=== PATIENT | female | born 1945 | race Hispanic/Latino ===

== ENCOUNTER 2019-01-24 06:50 | Observation (INO) | payer OTHER ==
[2019-01-23 15:23] VITALS: BP 134/63
[2019-01-23 15:30] LABS: BASOPHILS % (AUTO) 0.5 % (0.0-5.0); EOSINOPHILS % (AUTO) 3.5 % (0.0-8.0); HEMATOCRIT 41.8 % (36-48); LYMPHOCYTES % (AUTO) 20.7 % (21.0-51.0); MEAN CORPUSCULAR HEMOGLOBIN 29.7 pg (27.0-33.0); MEAN CORPUSCULAR HGB CONC 33.2 g/dL (32.0-36.0); MEAN CORPUSCULAR VOLUME 89.5 fL (79-99); MONOCYTES % (AUTO) 10.5 % (3.0-13.0); NEUTROPHILS % (AUTO) 64.8 % (40.0-77.0); PLATELET COUNT (AUTO) 192 K/uL (130-400); RED BLOOD CELL COUNT(AUTO) 4.67 MIL/uL (4.00-5.50); RED CELL DISTRIBUTION WIDTH 13.7 % (11.0-15.5)
[2019-01-23 15:33] LABS: APPEARANCE,URINE SL CLOUDY (CLEAR); BILIRUBIN,URINE NEGATIVE (NEGATIVE); COLOR,URINE YELLOW (YELLOW); GLUCOSE, URINE (UA) NEGATIVE (NEGATIVE); KETONES,URINE NEGATIVE (NEGATIVE); LEUKOCYTE ESTERASE ,URINE TRACE (NEGATIVE); NITRATE,URINE NEGATIVE (NEGATIVE); OCCULT BLOOD,URINE NEGATIVE (NEGATIVE); PH,URINE 5.5 (5.0-8.0); PROTEIN,URINE NEGATIVE (NEGATIVE); UROBILINOGEN,URINE 0.2 mg/dL (0.2-1.0)
[2019-01-23 15:39] LABS: CREATININE 0.7 mg/dL (0.5-1.5)
[2019-01-23 15:39] LABS: BACTERIA,URINE Few /HPF (None Seen); RBC,URINE None Seen /HPF (0-1)
[2019-01-23 15:41] LABS: INR 0.87 (0.85-1.15); PARTIAL THROMBOPLASTIN TIME 29.6 SEC (26.3-35.5); PROTHROMBIN TIME 9.2 SEC (9.6-11.6)
--- NOTE | 2019-01-23 16:29 | NUR ---
UA INFORMED DR. HOFF OF ABNORMAL UA. ORDERS RECEIVED TO GIVE GENTAMICIN 240MG ON DAY OF PROCEDURE.
[2019-01-24] VITALS (23 sets, daily range): BP systolic 99–139; BP diastolic 35–67
[~2019-01-24] VITALS: Ht 160 cm; Wt 76.7 kg
[~2019-01-24 06:50] MED LIST: AMLO1TAB PO; GENTAMICIN SULFATE 240 MG in SODIUM CHLORIDE 0.9% 100 ML IV PRN
--- NOTE | 2019-01-24 08:21 | NUR ---
POTENTIAL FOR INFECTION: SHAVED LEFT KNEE / LEG FOLLOWED BY WIPING WITH KELSI: 2% CHLORHEXIDINE GLUCONATE CLOTH PATIENTS PRE-OP SKIN PREP. DONE PER GLORY VILLEDA MA.
[2019-01-24] MEDS ORDERED: ACETAMINOPHEN EXTRA STRENGTH 500 MG TABLET ONE (08:35)
[2019-01-24] MEDS ORDERED: KETOROLAC TROMETHAMINE 15MG/ML ONE (08:35)
[2019-01-24] MEDS ORDERED: CELECOXIB 200 MG CAP ONE (08:36)
[2019-01-24] MEDS ORDERED: LACTATED RINGERS 1000ML 1,000 ML IV ONE (08:36)
[2019-01-24] MEDS ORDERED: OXYCODONE HCL 10 MG TAB.SR.12H PO ONE (08:37)
[2019-01-24] MEDS: CEFAZOLIN SODIUM 1 GM VIAL IVP ONE ×2 (08:57→10:40)
[2019-01-24] MEDS ORDERED: CEFAZOLIN SODIUM 1 GM VIAL ONE ×2 (09:17→11:44)
[2019-01-24] MEDS ORDERED: ONDANSETRON HCL 4 MG/2 ML VIAL ONE (09:50)
[2019-01-24] MEDS ORDERED: GLYCOPYRROLATE 1 MG/5 ML SYRINGE ONE ×2 (09:50→10:20)
[2019-01-24] MEDS ORDERED: SUCCINYLCHOLINE 200MG/10ML SYR ONE (09:50)
[2019-01-24] MEDS ORDERED: PROPOFOL 10 MG/ML 20ML VIAL IV ONE (09:50)
[2019-01-24] MEDS ORDERED: LIDOCAINE PF 2% 5ML ABBOJECT ONE (09:50)
[2019-01-24] MEDS ORDERED: FENTANYL CITRATE PF 50 MCG/1 ML 2ML VIAL ONE ×2 (09:50→10:51)
[2019-01-24] MEDS ORDERED: DEXAMETHASONE SOD PHOSPHATE 10MG/ML 1ML VIAL ONE (09:50)
[2019-01-24] MEDS ORDERED: MIDAZOLAM HCL 1 MG/ML 2ML VIAL ONE (09:51)
[2019-01-24] MEDS ORDERED: ROCURONIUM 10MG/1ML SYR 10 MG/ML ML ONE (09:51)
[2019-01-24] MEDS ORDERED: NEOSTIGMINE 5MG/5ML SYR IV ONE (09:51)
[2019-01-24] MEDS: TRANEXAMIC ACID 1000MG/10ML IV ONE ×2 (10:20→12:30)
[2019-01-24] MEDS ORDERED: EPHEDRINE SULFATE 50 MG/ML AMPULE ONE (10:23)
[2019-01-24] MEDS ORDERED: TRAMADOL HCL 50 MG TABLET PO PRN (12:00)
[2019-01-24] MEDS ORDERED: DiphenhydrAMINE HCL 50 MG/ML VIAL IVP PRN (12:00)
[2019-01-24] MEDS ORDERED: POTASSIUM CHLORIDE 10% ELIXIR 20 MEQ/15 ML UDCUP PO PRN (12:00)
[2019-01-24] MEDS: ACETAMINOPHEN EXTRA STRENGTH 500 MG TABLET PO SCH ×2 (12:00→19:52)
[2019-01-24] MEDS ORDERED: POTASSIUM CHLORIDE 20 MEQ ERTAB PO PRN (12:00)
[2019-01-24] MEDS ORDERED: FERROUS FUMARATE 324 MG TABLET PO PRN (12:00)
[2019-01-24] MEDS ORDERED: POTASSIUM CHLORIDE 20MEQ/100ML 100 ML IV PRN (12:00)
[2019-01-24] MEDS ORDERED: LIDOCAINE HCL-MPF 1% 2ML VIAL IVP PRN (12:00)
[2019-01-24] MEDS ORDERED: CALCIUM CARBONATE 500 MG TABLET PO PRN (12:00)
[2019-01-24] MEDS ORDERED: OXYCODONE HCL 5 MG TAB PO PRN (12:00)
[2019-01-24] MEDS ORDERED: TEMAZEPAM 15 MG CAPSULE PO PRN (12:00)
[2019-01-24] MEDS ORDERED: KETOROLAC TROMETHAMINE 15MG/ML IV PRN (12:00)
[2019-01-24] MEDS ORDERED: ONDANSETRON HCL 4 MG/2 ML VIAL IVP PRN (12:00)
[2019-01-24] MEDS ORDERED: ATROPINE SULFATE 0.1 MG/ML 10 ML SYG IVP ONE (12:07)
[2019-01-24] MEDS: SODIUM CHLORIDE 0.9% 1000ML 1,000 ML IV SCH ×2 (13:10→21:48)
--- NOTE | 2019-01-24 13:35 | NUR ---
DCP CM met with pt discussed dc plans. Pt is independent prior to surgery, lives at home with spouse. Has a shower chair. Denies any other equipments/services. Pt feels safe to go back home, spouse able to assist with transportation and needs as necessary. Pt agreeable to short term placement for rehab as spouse will not be able to fully assist pt at home, TERE signed for [facility]. Faxed order, clinicals, and pasrr to [facility], confirmation received. Faxed order and clinicals to [facility], confirmation received. DC plan to SNF. CM to cont to follow up. Addendum: 01/24/19 at 1337 by STEFANI DEL ANGEL LVN CM Amended: Links added.
--- NOTE | 2019-01-24 13:38 | NUR ---
CM Note: [facility] pending approval for standard walker no wheels and 3 in 1 chair. Spoke to Art w/[facility], received request, aware pt will go to [facility] prior to dc home. Per Art will coordinate w/[facility]hel[facility] once pt closer to dc from facility. Primary nurse aware. CM to cont to follow up.
--- NOTE | 2019-01-24 13:39 | NUR ---
CM Note: [facility] pending ins auth Spoke to [facility], received order, clinicals, and pasrr. Will come eval pt and send clinicals to insurance today. Pt pending ins auth. Primary nurse aware. CM to cont to follow up.
[2019-01-24] MEDS: CEFAZOLIN SODIUM 1 GM VIAL IVP SCH (17:07)
[2019-01-24] MEDS: PREGABALIN 25 MG CAP PO SCH (19:51)
[2019-01-24] MEDS: CELECOXIB 200 MG CAP PO SCH (19:51)
[2019-01-24] MEDS: FAMOTIDINE 20MG TAB 20 MG TAB PO SCH (19:51)
[2019-01-24] MEDS: ASPIRIN 325 MG TABLET PO SCH (19:51)
[2019-01-24] MEDS: OXYCODONE HCL 5 MG TAB PO PRN (22:21)
[2019-01-25] MEDS: OXYCODONE HCL 5 MG TAB PO PRN ×2 (01:26→08:57)
[2019-01-25] MEDS: CEFAZOLIN SODIUM 1 GM VIAL IVP SCH (01:26)
[2019-01-25 03:31] VITALS: BP 118/57
[2019-01-25] MEDS: ACETAMINOPHEN EXTRA STRENGTH 500 MG TABLET PO SCH ×2 (04:17→12:26)
[2019-01-25 05:01] LABS: HEMATOCRIT 36.9 % (36-48); MEAN CORPUSCULAR HEMOGLOBIN 29.8 pg (27.0-33.0); MEAN CORPUSCULAR HGB CONC 33.2 g/dL (32.0-36.0); MEAN CORPUSCULAR VOLUME 89.8 fL (79-99); PLATELET COUNT (AUTO) 151 K/uL (130-400); RED BLOOD CELL COUNT(AUTO) 4.11 MIL/uL (4.00-5.50); RED CELL DISTRIBUTION WIDTH 13.7 % (11.0-15.5); WHITE BLOOD COUNT (AUTO) 7.4 K/uL (4.8-10.8)
[2019-01-25 05:10] LABS: CREATININE 0.7 mg/dL (0.5-1.5); POTASSIUM 4.3 mmol/L (3.5-5.1)
[2019-01-25 08:00] VITALS: BP 134/58
[2019-01-25] MEDS: ASPIRIN 325 MG TABLET PO SCH (08:56)
[2019-01-25] MEDS: FAMOTIDINE 20MG TAB 20 MG TAB PO SCH (08:56)
[2019-01-25] MEDS: CELECOXIB 200 MG CAP PO SCH (08:56)
[2019-01-25] MEDS: PREGABALIN 25 MG CAP PO SCH (08:57)
[2019-01-25] MEDS ORDERED: OLMESARTAN MED PO SCH (09:00)
[2019-01-25] MEDS ORDERED: AMLODIPINE BES PO SCH (09:00)
[2019-01-25] MEDS ORDERED: POLYETHYLENE GLYCOL 3350 17 GM POWD.PACK PO SCH (09:00)
[2019-01-25 11:00] VITALS: BP 141/70
[2019-01-25] MEDS ORDERED: HYDR-4457 PO (13:01)
[2019-01-25] MEDS ORDERED: ASPI-1012 PO (13:01)
[2019-01-25 16:00] VITALS: BP 126/74
--- NOTE | 2019-01-25 16:29 | NUR ---
CM Note: [facility] pending ins auth Spoke to Maude Herron, pending ins auth at this time. Made aware to call primary nurse directly once auth obtained, given primary nurse Xena [phone]. Pt safe to dc via transport van once approved. Primary nurse aware. CM to cont to follow up.
--- NOTE | 2019-01-25 16:53 | NUR ---
CM Note: [facility] ins auth and acceptance Spoke to Maude Herron, pt has ins auth and acceptance. Pt may transfer via transport van safely. Primary nurse aware. CM to cont to follow up.
--- NOTE | 2019-01-25 17:50 | NUR ---
DISCHARGE DISCHARGE TEACHING DONE WITH PATIENT AND FAMILY USING TEACHBACK METHOD, VERALIZED UNDERSTANDING. NO NOTED SOB OR DISTRESS. NEW MEDICATION ADMINISTRATION TEACHING DONE WITH PATIENT, VERBALIZED UNDERSTANDING. PT AWARE OF NEED TO ATTEND DR. HOFF APPOINTMENT. DRESSING TO KNEE DRY AND INTACT. DRESSING CHANGED PER DR. HOFF, INCISION IS DRY AND INTACT. DRESSING TEACHING DONE WITH PATIENT, VERBALIZED UNDERSTANDING. IV REMOVED, CATH TIP INTACT. PENDING TO BE TRANSFERRED OUT VIA PRIVATE VEHICLE. REPORT CALLED TO [facility].
[2019-01-27] MEDS ORDERED: BISACODYL 10 MG SUPP.RECT RC PRN (12:00)
== END 2019-01-25 19:32 ==
LOC: DAH 06:50 → DAHIP 06:51 → 4AH 13:32
PROVIDERS: ADMIT Orthopaedic Surgery; ATTEND Orthopaedic Surgery
DX: M17.12 Unilateral primary osteoarthritis, left knee (principal); I10 Essential (primary) hypertension; E78.5 Hyperlipidemia, unspecified; Z86.73 Personal history of transient ischemic attack (TIA), and cerebral infarction without residual deficits; E66.9 Obesity, unspecified; G89.29 Other chronic pain; Z79.899 Other long term (current) drug therapy; Z79.01 Long term (current) use of anticoagulants
CPT/HCPCS: 27447; 36415 ×2; 80048 ×2; 81001; 85025; 85027; 85610; 85730; 87641; 96365; 96375; 96376; 97116 ×3; 97161; 97530 ×2; A4218; A4606; A4649 ×6; A4930 ×2; A6219; C1763; C1776; G0168; G0378 ×29; G8978; G8979; G8980; G8981; G8982; G8983; J0330; J0461; J0690 ×5; J1100; J1885; J2001; J2250; J2405 ×2; J2704; J2710; J3010 ×2; J3490 ×4; J7120 ×2; 96374

== ENCOUNTER 2021-08-18 08:20 | Observation (INO) | payer MEDICARE ==
[2021-08-13 11:18] LABS: BASOPHILS % (AUTO) 0.5 % (0.0-5.0); EOSINOPHILS % (AUTO) 3.7 % (0.0-8.0); HEMATOCRIT 42.8 % (36-48); LYMPHOCYTES % (AUTO) 24.5 % (21.0-51.0); MEAN CORPUSCULAR HEMOGLOBIN 30.5 pg (27.0-33.0); MEAN CORPUSCULAR HGB CONC 32.5 g/dL (32.0-36.0); MEAN CORPUSCULAR VOLUME 94.1 fL (79-99); MONOCYTES % (AUTO) 10.1 % (3.0-13.0); NEUTROPHILS % (AUTO) 60.9 % (40.0-77.0); PLATELET COUNT (AUTO) 209 K/uL (130-400); RED BLOOD CELL COUNT(AUTO) 4.55 MIL/uL (4.00-5.50); RED CELL DISTRIBUTION WIDTH 12.8 % (11.0-15.5); WHITE BLOOD COUNT (AUTO) 7.3 K/uL (4.8-10.8)
[2021-08-13 11:28] LABS: INR 0.94 (0.85-1.15); PROTHROMBIN TIME 10.3 SEC (9.6-11.6)
[2021-08-13 11:29] LABS: PARTIAL THROMBOPLASTIN TIME 28.6 SEC (26.3-35.5)
[2021-08-13 11:31] LABS: CREATININE 0.8 mg/dL (0.5-1.5); POTASSIUM 4.7 mmol/L (3.5-5.1)
[2021-08-17 13:13] VITALS: BP 166/70
[~2021-08-18] VITALS: Ht 160 cm; Wt 77.7 kg
[2021-08-18] VITALS (23 sets, daily range): BP systolic 107–154; BP diastolic 43–73
[~2021-08-18 08:20] MED LIST changes: -GENTAMICIN SULFATE 240 MG in SODIUM CHLORIDE 0.9% 100 ML IV PRN; +ROPIVICAINE 250MG+KETOROLAC 15MG+EPINEPHRINE 0.3+CLONIDINE 80 IV PRN
[2021-08-18] MEDS ORDERED: TRANEXAMIC ACID 1000MG/10ML ONE (11:07)
[2021-08-18] MEDS: CEFAZOLIN SODIUM 1 GM VIAL IVP SCH ×3 (11:24→20:08)
[2021-08-18] MEDS: LACTATED RINGERS 1000ML 1,000 ML IV SCH ×3 (11:24→15:00)
[2021-08-18] MEDS ORDERED: FENTANYL CITRATE PF 50 MCG/1 ML 2ML VIAL ONE ×2 (11:30)
[2021-08-18] MEDS ORDERED: MIDAZOLAM HCL 1 MG/ML 2ML VIAL ONE (11:30)
[2021-08-18] MEDS ORDERED: PROPOFOL 10 MG/ML 20ML VIAL IV ONE (11:30)
[2021-08-18] MEDS ORDERED: ROCURONIUM 10MG/1ML SYR 10 MG/ML ML ONE (11:41)
[2021-08-18] MEDS ORDERED: ROPIVACAINE 0.5% 5MG/ML 30ML IJ ONE (11:57)
[2021-08-18] MEDS ORDERED: DEXAMETHASONE SOD PHOSPHATE 10MG/ML 1ML VIAL ONE (11:58)
[2021-08-18] MEDS ORDERED: EPHEDRINE SULFATE 50 MG/ML AMPULE ONE (12:48)
[2021-08-18] MEDS ORDERED: ONDANSETRON 4MG INJ ONE (12:49)
[2021-08-18] MEDS ORDERED: HYDROCODONE/ACETAMINOPHEN 5/325 MG TAB PO PRN (13:00)
[2021-08-18] MEDS: ACETAMINOPHEN 500 MG TABLET PO SCH ×2 (13:00→20:09)
[2021-08-18] MEDS ORDERED: ONDANSETRON 4MG INJ IVP PRN (13:00)
[2021-08-18] MEDS ORDERED: MORPHINE 4 MG SYG IVP PRN (13:00)
[2021-08-18] MEDS: 0.9%NACL 1000ML 1,000 ML IV SCH ×2 (13:00→20:10)
[2021-08-18] MEDS ORDERED: OXYCODONE HCL 5 MG TAB PO PRN (13:00)
[2021-08-18] MEDS ORDERED: GLYCOPYRROLATE 1 MG/5 ML SYRINGE ONE (13:07)
[2021-08-18] MEDS ORDERED: NEOSTIGMINE 5MG/5ML SYR IV ONE (14:52)
[2021-08-18] MEDS: TRAMADOL HCL 50 MG TABLET PO SCH ×2 (17:34→23:17)
[2021-08-18] MEDS ORDERED: CEFAZOLIN SODIUM 1 GM VIAL IVP SCH (18:00)
[2021-08-18] MEDS: FAMOTIDINE 20MG TAB PO SCH (20:08)
[2021-08-18] MEDS: ASPIRIN 81 MG EC TAB PO SCH (20:08)
[2021-08-19 04:18] LABS: HEMATOCRIT 36.8 % (36-48); MEAN CORPUSCULAR HEMOGLOBIN 29.7 pg (27.0-33.0); MEAN CORPUSCULAR HGB CONC 31.8 g/dL (32.0-36.0); MEAN CORPUSCULAR VOLUME 93.4 fL (79-99); RED BLOOD CELL COUNT(AUTO) 3.94 MIL/uL (4.00-5.50); RED CELL DISTRIBUTION WIDTH 12.6 % (11.0-15.5); WHITE BLOOD COUNT (AUTO) 11.5 K/uL (4.8-10.8)
[2021-08-19 04:25] LABS: CREATININE 0.9 mg/dL (0.5-1.5); POTASSIUM 4.8 mmol/L (3.5-5.1)
[2021-08-19] MEDS: CEFAZOLIN SODIUM 1 GM VIAL IVP SCH (04:30)
[2021-08-19] MEDS: ACETAMINOPHEN 500 MG TABLET PO SCH ×3 (04:30→20:14)
[2021-08-19 04:35] VITALS: BP 129/69
[2021-08-19] MEDS: TRAMADOL HCL 50 MG TABLET PO SCH ×3 (05:45→18:00)
[2021-08-19 07:51] VITALS: BP 123/68
[2021-08-19] MEDS: OLMESARTAN MED PO SCH (09:00)
[2021-08-19] MEDS: 0.9%NACL 1000ML 1,000 ML IV SCH (09:00)
[2021-08-19] MEDS: AMLODIPINE BES PO SCH (09:00)
[2021-08-19] MEDS: POLYETHYLENE GLYCOL 3350 17 GM POWD.PACK PO SCH (09:41)
[2021-08-19] MEDS: ASPIRIN 81 MG EC TAB PO SCH ×2 (09:41→20:13)
[2021-08-19] MEDS: FAMOTIDINE 20MG TAB PO SCH ×2 (09:41→21:22)
[2021-08-19 10:39] VITALS: BP 121/63
[2021-08-19 15:39] VITALS: BP 121/68
[2021-08-19 20:21] VITALS: BP 152/78
[2021-08-20] VITALS (7 sets, daily range): BP systolic 112–148; BP diastolic 59–79
[2021-08-20] MEDS: ACETAMINOPHEN 500 MG TABLET PO SCH ×3 (05:12→20:10)
[2021-08-20] MEDS: TRAMADOL HCL 50 MG TABLET PO SCH ×5 (05:12→20:10)
[2021-08-20] MEDS: FAMOTIDINE 20MG TAB PO SCH ×2 (09:22→20:09)
[2021-08-20] MEDS: ASPIRIN 81 MG EC TAB PO SCH ×2 (09:22→20:09)
[2021-08-20] MEDS: POLYETHYLENE GLYCOL 3350 17 GM POWD.PACK PO SCH (09:22)
[2021-08-20] MEDS: OLMESARTAN MED PO SCH (09:26)
[2021-08-20] MEDS: AMLODIPINE BES PO SCH (09:26)
[2021-08-21] MEDS: ACETAMINOPHEN 500 MG TABLET PO SCH ×3 (04:06→19:34)
[2021-08-21] MEDS: TRAMADOL HCL 50 MG TABLET PO SCH ×3 (04:06→18:00)
[2021-08-21 04:28] VITALS: BP 143/74
[2021-08-21 07:31] VITALS: BP 152/83
[2021-08-21] MEDS: ASPIRIN 81 MG EC TAB PO SCH ×2 (08:13→19:34)
[2021-08-21] MEDS: POLYETHYLENE GLYCOL 3350 17 GM POWD.PACK PO SCH (08:13)
[2021-08-21] MEDS: FAMOTIDINE 20MG TAB PO SCH ×2 (08:13→19:35)
[2021-08-21] MEDS: AMLODIPINE BES PO SCH (08:16)
[2021-08-21] MEDS: OLMESARTAN MED PO SCH (08:16)
[2021-08-21 10:47] VITALS: BP 138/55
[2021-08-21] MEDS ORDERED: BISACODYL 10 MG SUPP.RECT RC PRN (13:00)
[2021-08-21 16:44] VITALS: BP 143/68
== END 2021-08-21 20:15 ==
LOC: SUH 08:20 → DAH 08:20 → DAHIP 08:21 → SUH 08:21 → 4AH 15:38
PROVIDERS: ADMIT Orthopaedic Surgery; ATTEND Orthopaedic Surgery
DX: M17.11 Unilateral primary osteoarthritis, right knee (principal); Z20.822 Contact with and (suspected) exposure to COVID-19; K59.00 Constipation, unspecified; R53.81 Other malaise; Z79.82 Long term (current) use of aspirin; Z79.899 Other long term (current) drug therapy; Z98.890 Other specified postprocedural states
CPT/HCPCS: 27447; 36415 ×2; 80048 ×2; 85025; 85027; 85610; 85730; 87635; 87641; 93005; 96374; 96375; 96376; 97039 ×6; 97116 ×6; 97161; 97530 ×5; A4215; A4221; A4222; A4223; A4248; A4649 ×4; A4663; A4930 ×2; A6212; A6260; C1776; C9803; G0378 ×73; J0171; J0690 ×3; J0735; J1100; J1885; J2250; J2270; J2405; J2704; J2710; J2795 ×2; J3010 ×2; J3490 ×3; J7120

== ENCOUNTER 2022-12-29 06:30 | Observation (INO) | payer MEDICARE ==
[2022-12-27 09:08] LABS: BASOPHILS % (AUTO) 0.5 % (0.0-5.0); EOSINOPHILS % (AUTO) 4.2 % (0.0-8.0); HEMATOCRIT 45.5 % (36-48); MEAN CORPUSCULAR HEMOGLOBIN 30.2 pg (27.0-33.0); MEAN CORPUSCULAR HGB CONC 32.1 g/dL (32.0-36.0); MONOCYTES % (AUTO) 10.3 % (3.0-13.0); NEUTROPHILS % (AUTO) 58.5 % (40.0-77.0); PLATELET COUNT (AUTO) 183 K/uL (130-400); RED BLOOD CELL COUNT(AUTO) 4.84 MIL/uL (4.00-5.50); RED CELL DISTRIBUTION WIDTH 12.7 % (11.0-15.5); WHITE BLOOD COUNT (AUTO) 5.7 K/uL (4.8-10.8)
[2022-12-27 09:16] VITALS: BP 162/67
[2022-12-27 09:21] LABS: INR 0.93 (0.85-1.15); PROTHROMBIN TIME 9.8 SEC (9.6-11.6)
[2022-12-27 09:23] LABS: CREATININE 0.9 mg/dL (0.5-1.5); POTASSIUM 4.5 mmol/L (3.5-5.1)
[2022-12-29] VITALS (10 sets, daily range): BP systolic 105–159; BP diastolic 46–71
[~2022-12-29] VITALS: Ht 157.5 cm; Wt 77.0 kg
[~2022-12-29 06:30] MED LIST changes: +AMLO-751 PO; -AMLO1TAB PO; -ROPIVICAINE 250MG+KETOROLAC 15MG+EPINEPHRINE 0.3+CLONIDINE 80 IV PRN
[2022-12-29] MEDS ORDERED: 0.9%NACL 1000ML 1,000 ML IV ONE (07:16)
[2022-12-29] MEDS ORDERED: LIDOCAINE HCL 400MG/20ML VIAL ONE ×2 (11:51→11:54)
[2022-12-29] MEDS ORDERED: IODIXANOL 320 MG/ML 100 ML VIAL ONE (11:52)
[2022-12-29] MEDS ORDERED: MIDAZOLAM HCL 1 MG/ML 2ML VIAL ONE (11:52)
[2022-12-29] MEDS ORDERED: FENTANYL CITRATE PF 50 MCG/1 ML 2ML VIAL ONE (11:52)
[2022-12-29] MEDS ORDERED: HEPARIN 10,000 UNIT/10ML (1,000 UNIT/ML) VIAL ONE (11:52)
[2022-12-29] MEDS ORDERED: CLOPIDOGREL 300MG TAB ONE (12:56)
[2022-12-29] MEDS ORDERED: ASPIRIN 325MG EC TAB PO ONE (12:56)
[2022-12-29] MEDS ORDERED: GLUCAGON 1MG KIT 1 MG ML IM PRN (13:00)
[2022-12-29] MEDS ORDERED: DEXTROSE 50%-WATER 50 ML DISP.SYRIN IV PRN (13:00)
[2022-12-29] MEDS ORDERED: CLOP75TA32 PO (14:00)
[2022-12-29] MEDS ORDERED: ASPI-1197 PO (14:01)
[2022-12-29 17:27] LABS: HEMATOCRIT 34.4 % (36-48)
[2022-12-30 00:15] VITALS: BP 131/69
[2022-12-30 03:15] VITALS: BP 121/53
[2022-12-30 11:35] VITALS: BP 126/86
== END 2022-12-30 16:30 | disposition home or self-care (01) ==
LOC: DAH 06:30 → DAHIP 06:31 → 2AH 18:04
PROVIDERS: ADMIT Internal Medicine Cardiovascular Disease; ATTEND Internal Medicine Cardiovascular Disease
DX: I87.1 Compression of vein (principal); I87.2 Venous insufficiency (chronic) (peripheral); H40.9 Unspecified glaucoma; I11.0 Hypertensive heart disease with heart failure; M79.81 Nontraumatic hematoma of soft tissue; E78.5 Hyperlipidemia, unspecified; M17.11 Unilateral primary osteoarthritis, right knee; M54.31 Sciatica, right side; I48.0 Paroxysmal atrial fibrillation; E66.9 Obesity, unspecified; Z86.73 Personal history of transient ischemic attack (TIA), and cerebral infarction without residual deficits; Z79.899 Other long term (current) drug therapy
CPT/HCPCS: 80048; 85025; 85610; 85730; 36415 ×2; 93005; 37238; 37239; 75822; 36005; 37252; 37253 ×5; 85014; 85018; 76882; C1876 ×2; C1894 ×3; C1725; C1753; C1769; G0378 ×23; J3010; J3490 ×2; J7030; J1644 ×2; J2250; Q9967; A4215; A4223 ×3; A4222; A4221; A4663; A4216; A4606; 36012; 99156; 99157